=== PATIENT | female | born 1955 | race Caucasian/White ===

== ENCOUNTER 2021-12-04 08:29 | Outpatient (CLI) | payer MEDICARE, BC, SELFPAY ==
[2021-12-04 11:22] LABS: Albumin* 4.1 g/dL (3.3-5.0)
[2021-12-04 11:23] LABS: Chloride* 103 mmol/L (96-114); Potassium* 3.9 mmol/L (3.6-5.1); Sodium* 138 mmol/L (135-149)
[2021-12-04 11:25] LABS: Alkaline Phosphatase* 57 U/L (40-150); Aspartate Amino Transferase* 24 U/L (12-35); Bilirubin Total* 0.7 mg/dL (0.1-1.5); Blood Urea Nitrogen* 14 mg/dL (7-30); Carbon Dioxide* 29 mmol/L (20-32); Cholesterol* 248 mg/dL (90-199); Creatinine* 0.6 mg/dL (0.5-1.5); Estimated Glomerular Filt Rate 98 ml/min; Total Protein* 7.4 g/dL (6.0-8.3)
[2021-12-04 11:26] LABS: Alanine Aminotransferase* 13 U/L (4-35); Calcium* 9.2 mg/dL (8.4-10.6); Glucose* 88 mg/dL (60-115); HDL Cholesterol* 74 mg/dL (>=50); LDL Cholesterol Calculated 158 mg/dL (<100); Triglycerides* 78 mg/dL (40-149)
== END 2021-12-04 08:30 | disposition home or self-care (01) ==
LOC: NFLDREF 08:30
PROVIDERS: PCP Internal Medicine; Visit Provider Internal Medicine
DX: Z00.01 Encounter for general adult medical examination with abnormal findings (principal); I10 Essential (primary) hypertension; D51.0 Vitamin B12 deficiency anemia due to intrinsic factor deficiency; E78.5 Hyperlipidemia, unspecified
CPT/HCPCS: 80053; 80061

== ENCOUNTER 2022-02-14 14:53 | Outpatient (CLI) | payer MEDICARE, BC, SELFPAY ==
--- NOTE | 2022-02-14 15:00 | CRLHL7_ITS ---
For Patients: As a result of the Century Cures Act, medical imaging exams and procedure reports are released immediately into your electronic medical record. You may view this report before your referring provider. If you have questions, please contact your health care provider. CLINICAL HISTORY: Abdominal pain FINDINGS: Sonographic imaging demonstrates normal size and uniform echotexture of the liver. The spleen is of normal size. The pancreas appears normal. The proximal abdominal aorta and IVC appear normal. There is no evidence of ascites. The gallbladder is of normal size and there is no evidence of sludge or stones within the gallbladder lumen. The gallbladder wall measures mm in thickness. The common bile duct measures 3 mm in size within the ned hepatis. The kidneys appear symmetric. The right kidney measures 11. 1 cm in length and the left kidney measures 11.9 cm. There is no evidence of a renal calculus or hydronephrosis. IMPRESSION: Unremarkable abdominal ultrasound. Dictated by Keren Mcrae MD @ 02/14/2022 7:16:15 PM (Electronically Signed)
== END 2022-02-14 14:54 | disposition home or self-care (01) ==
LOC: US 14:58
PROVIDERS: PCP Internal Medicine; Visit Provider Internal Medicine
DX: R10.9 Unspecified abdominal pain (principal)
CPT/HCPCS: 76700